=== PATIENT | female | born 1945 | race Caucasian/White ===

== ENCOUNTER → 2024-06-10 14:09 | Outpatient (REF) | payer MEDICARE, OTHER, SELFPAY | LOC: WDC 14:09 | PROVIDERS: ATTENDING PHYSICIAN Family Medicine | DX: Z12.31 Encounter for screening mammogram for malignant neoplasm of breast (principal) | CPT/HCPCS: 77063; 77067 ==

== ENCOUNTER → 2025-06-09 14:26 | Outpatient (REF) | payer MEDICARE, OTHER, SELFPAY | LOC: RAD 14:26 | PROVIDERS: ATTENDING PHYSICIAN Family Medicine | DX: M85.89 Other specified disorders of bone density and structure, multiple sites (principal); Z78.0 Asymptomatic menopausal state | CPT/HCPCS: 77080 ==

== ENCOUNTER → 2025-06-13 10:43 | Outpatient (REF) | payer MEDICARE, OTHER, SELFPAY | LOC: WDC 10:43 | PROVIDERS: ATTENDING PHYSICIAN Family Medicine | DX: Z12.31 Encounter for screening mammogram for malignant neoplasm of breast (principal) | CPT/HCPCS: 77063; 77067 ==